=== PATIENT | female | born 1995 | race Caucasian/White ===

== ENCOUNTER 2017-04-13 20:05 | Emergency (ER) | payer MEDICARE, MEDICAID ==
[~2017-04-13] VITALS: Ht 157.4 cm; Wt 74.8 kg
[~2017-04-13 20:05] MED LIST: AMOXICILLIN500 M2 PO; AMOXICILLIN500 MG PO; AMOXIL500 MG PO; AUGMENTIN ES-6100 ML PO; MOTRIN800 MG PO; PRENATAL1 TA3 PO; VYVANSE50 MG PO; ZOFRAN8 M1 PO; [UNRECOGNIZED DRUG - OTHER]
[2017-04-13] MEDS ORDERED: ONDANSETRON HYDR4 MG PO (20:13)
[2017-04-13] MEDS ORDERED: FAMOTIDINE20 M1 PO (20:13)
[2017-04-13 20:25] LABS: BASO % 0.2 % (0.0-1.0); EOS # 0.5 10*3/uL (0.0-0.4); EOS % 4.3 % (1.0-4.0); HEMATOCRIT 30.9 % (37.0-47.0); HEMOGLOBIN 10.5 g/dl (12.0-16.0); IG # 0.1 10*3/uL (0.0-0.1); LYMPH # 1.9 10*3/uL (1.3-4.4); LYMPH % 15.2 % (27.0-41.0); MEAN CELL VOLUME 95.4 fl (81.0-99.0); MEAN CORPUSCULAR HGB 32.4 pg (27.0-31.0); MEAN PLATELET VOLUME 10.1 fl (9.6-12.3); MONO # 0.6 10*3/uL (0.1-1.0); MONO % 5.1 % (3.0-9.0); NEUT # 9.2 10*3/uL (2.3-7.9); NEUT % 74.7 % (47.0-73.0); PLATELET COUNT AUTOMATED 199 10*3/uL (130-400); RED BLOOD COUNT 3.24 10*6/uL (4.10-5.10); RED CELL DISTRI WIDTH 14.5 % (0-14.5); WHITE BLOOD COUNT 12.3 10*3/uL (4.8-10.8)
[2017-04-13 20:39] LABS: BILIRUBIN NEGATIVE (NEGATIVE); BLOOD NEGATIVE (NEGATIVE); CLARITY SL CLOUDY (CLEAR); COLOR YELLOW (YELLOW); GLUCOSE NEGATIVE (NEGATIVE); KETONE TRACE (NEGATIVE); LEUKO ESTERASE 1+ (NEGATIVE); NITRITE NEGATIVE (NEGATIVE); PH 6.5 (5.0-9.0); PROTEIN TRACE (NEGATIVE); UROBILINOGEN 0.2 E.U./dl (0.2-1.0)
[2017-04-13 20:40] LABS: ALBUMIN 2.7 gm/dl (3.1-4.5); ALKALINE PHOSPHATASE 113 U/L (45-117); BILIRUBIN, TOTAL 0.2 mg/dl (0.2-1.0); BUN 7 mg/dl (7-24); C-REACTIVE PROTEIN 3.21 MG/DL (0-0.3); CARBON DIOXIDE 24 mmol/L (21-32); CHLORIDE 107 mmol/L (98-107); EST GLOM FILT AFRICAN AMERICAN > 60 ml/min; GLUCOSE 96 mg/dL (65-99); MAGNESIUM 1.7 mg/dL (1.5-2.1); POTASSIUM 3.6 mmol/L (3.5-5.1); SGOT/AST 7 IU/L (3-35); SGPT/ALT 15 U/L (12-78); SODIUM 139 mmol/L (136-145); TOTAL PROTEIN 6.7 gm/dL (6.4-8.2)
[2017-04-13 20:48] LABS: BACTERIA 2+; EPITHELIAL CELLS 16-20; MUCOUS TRACE; RBC 0-2 rbc/hpf (0-2); WBC TNTC wbc/hpf (0-5)
[2017-04-13 20:49] LABS: URINE REFLEX COMMENT YES (NO)
[2017-04-13 23:45] VITALS: BP 109/60
== END 2017-04-14 00:06 | disposition short-term general hospital (02) ==
LOC: ED 20:05
PROVIDERS: Emergency Medicine Emergency Medical Services
DX: O23.42 Unspecified infection of urinary tract in pregnancy, second trimester (principal); Z3A.27 27 weeks gestation of pregnancy

== ENCOUNTER 2017-09-18 19:07 | Emergency (ER) | payer MEDICARE, MEDICAID ==
[~2017-09-18] VITALS: Ht 157.4 cm; Wt 80.3 kg
[~2017-09-18 19:07] MED LIST changes: +FAMOTIDINE20 M1 PO; +ONDANSETRON HYDR4 MG PO
[2017-09-18 19:18] VITALS: BP 132/86
[2017-09-18 19:57] LABS: BASO % 0.4 % (0.0-1.0); EOS # 0.2 10*3/uL (0.0-0.4); EOS % 2.5 % (1.0-4.0); HEMATOCRIT 36.5 % (37.0-47.0); HEMOGLOBIN 12.2 g/dl (12.0-16.0); LYMPH # 2.7 10*3/uL (1.3-4.4); LYMPH % 33.7 % (27.0-41.0); MEAN CELL VOLUME 90.1 fl (81.0-99.0); MEAN CORPUSCULAR HGB 30.1 pg (27.0-31.0); MEAN CORPUSCULAR HGB CONC 33.4 g/dl (33.0-37.0); MEAN PLATELET VOLUME 10.2 fl (9.6-12.3); MONO # 0.5 10*3/uL (0.1-1.0); MONO % 5.6 % (3.0-9.0); NEUT # 4.6 10*3/uL (2.3-7.9); NEUT % 57.5 % (47.0-73.0); PLATELET COUNT AUTOMATED 261 10*3/uL (130-400); RED BLOOD COUNT 4.05 10*6/uL (4.10-5.10); RED CELL DISTRI WIDTH 14.7 % (0-14.5)
[2017-09-18 20:11] LABS: BILIRUBIN NEGATIVE (NEGATIVE); BLOOD TRACE-INTACT (NEGATIVE); CLARITY CLEAR (CLEAR); COLOR YELLOW (YELLOW); GLUCOSE NEGATIVE (NEGATIVE); KETONE TRACE (NEGATIVE); LEUKO ESTERASE NEGATIVE (NEGATIVE); NITRITE NEGATIVE (NEGATIVE)
[2017-09-18 20:11] LABS: ALBUMIN 3.9 gm/dl (3.1-4.5); ALKALINE PHOSPHATASE 86 U/L (45-117); BUN 12 mg/dl (7-24); CHLORIDE 107 mmol/L (98-107); CREATININE 0.81 mg/dL (0.55-1.02); POTASSIUM 4.3 mmol/L (3.5-5.1); SGOT/AST 29 IU/L (3-35); SGPT/ALT 55 U/L (12-78); SODIUM 141 mmol/L (136-145); TOTAL PROTEIN 7.1 gm/dL (6.4-8.2)
[2017-09-18 20:12] LABS: ACT PARTIAL THROMBO TIME 25.1 SECONDS (20.8-31.5)
[2017-09-18 20:13] LABS: BETA-HCG, QUANT < 1.0 mIU/mL (1-3)
[2017-09-18 20:17] LABS: WBC 0-2 wbc/hpf (0-5)
== END 2017-09-18 21:52 | disposition home or self-care (01) ==
LOC: ED 19:07
PROVIDERS: Student in an Organized Health Care Education/Training Program
DX: N93.9 Abnormal uterine and vaginal bleeding, unspecified (principal); R10.31 Right lower quadrant pain; Z79.82 Long term (current) use of aspirin; Z79.899 Other long term (current) drug therapy

== ENCOUNTER 2017-10-17 20:35 | Emergency (ER) | payer MEDICARE, MEDICAID ==
[~2017-10-17] VITALS: Ht 154.9 cm; Wt 77.1 kg
[2017-10-17 20:54] VITALS: BP 126/72
[2017-10-17] MEDS ORDERED: Motrin,Rufen800 MG PO (21:59)
== END 2017-10-17 22:02 | disposition home or self-care (01) ==
LOC: ED 20:35
DX: S93.401A Sprain of unspecified ligament of right ankle, initial encounter (principal); Z88.6 Allergy status to analgesic agent; Z88.8 Allergy status to other drugs, medicaments and biological substances; Z79.899 Other long term (current) drug therapy; W17.2XXA Fall into hole, initial encounter; Y93.89 Activity, other specified; Y92.098 Other place in other non-institutional residence as the place of occurrence of the external cause; Y99.8 Other external cause status

== ENCOUNTER 2018-01-12 23:17 | Emergency (ER) | payer MEDICARE, MEDICAID ==
[~2018-01-12] VITALS: Ht 157.4 cm; Wt 84.4 kg
[~2018-01-12 23:17] MED LIST changes: +Motrin,Rufen800 MG PO
[2018-01-12 23:21] VITALS: BP 147/94
[2018-01-12 23:48] LABS: BASO % 0.4 % (0.0-1.0); EOS # 0.1 10*3/uL (0.0-0.4); EOS % 1.4 % (1.0-4.0); HEMATOCRIT 36.1 % (37.0-47.0); HEMOGLOBIN 12.6 g/dl (12.0-16.0); LYMPH # 2.8 10*3/uL (1.3-4.4); LYMPH % 35.3 % (27.0-41.0); MEAN CELL VOLUME 91.4 fl (81.0-99.0); MEAN CORPUSCULAR HGB 31.9 pg (27.0-31.0); MEAN CORPUSCULAR HGB CONC 34.9 g/dl (33.0-37.0); MEAN PLATELET VOLUME 10.5 fl (9.6-12.3); MONO # 0.6 10*3/uL (0.1-1.0); MONO % 7.2 % (3.0-9.0); NEUT # 4.4 10*3/uL (2.3-7.9); NEUT % 55.6 % (47.0-73.0); PLATELET COUNT AUTOMATED 224 10*3/uL (130-400); RED BLOOD COUNT 3.95 10*6/uL (4.10-5.10); RED CELL DISTRI WIDTH 13.6 % (0-14.5); WHITE BLOOD COUNT 7.9 10*3/uL (4.8-10.8)
[2018-01-13 00:04] LABS: ALBUMIN 3.8 gm/dl (3.1-4.5); ALKALINE PHOSPHATASE 81 U/L (45-117); BUN 13 mg/dl (7-24); CHLORIDE 106 mmol/L (98-107); CREATININE 0.71 mg/dL (0.55-1.02); LIPASE 100 U/L (73-393); POTASSIUM 3.8 mmol/L (3.5-5.1); SGOT/AST 33 IU/L (3-35); SGPT/ALT 61 U/L (12-78); SODIUM 139 mmol/L (136-145); TOTAL PROTEIN 6.9 gm/dL (6.4-8.2)
[2018-01-13 00:06] LABS: B-hCG (QUALITATIVE) NEGATIVE (NEGATIVE)
[2018-01-13 00:31] LABS: BILIRUBIN NEGATIVE (NEGATIVE); BLOOD TRACE-INTACT (NEGATIVE); CLARITY CLEAR (CLEAR); COLOR YELLOW (YELLOW); GLUCOSE NEGATIVE (NEGATIVE); KETONE NEGATIVE (NEGATIVE); LEUKO ESTERASE NEGATIVE (NEGATIVE); NITRITE NEGATIVE (NEGATIVE); PH 6.5 (5.0-9.0); UROBILINOGEN 0.2 E.U./dl (0.2-1.0)
[2018-01-13 00:55] LABS: WBC 0-2 wbc/hpf (0-5)
== END 2018-01-13 02:20 | disposition home or self-care (01) ==
LOC: ED 23:17
PROVIDERS: Emergency Medicine
DX: R10.9 Unspecified abdominal pain (principal); Z88.6 Allergy status to analgesic agent; Z88.8 Allergy status to other drugs, medicaments and biological substances; Z79.899 Other long term (current) drug therapy

== ENCOUNTER 2018-03-01 22:13 | Emergency (ER) | payer MEDICARE, MEDICAID ==
[~2018-03-01] VITALS: Ht 157.4 cm; Wt 81.6 kg
[2018-03-01 22:16] VITALS: BP 138/110
[2018-03-01] MEDS ORDERED: CEPHALEXIN500 M1 PO (22:29)
== END 2018-03-01 22:42 | disposition home or self-care (01) ==
LOC: ED 22:13
DX: Z48.00 Encounter for change or removal of nonsurgical wound dressing (principal); Z88.6 Allergy status to analgesic agent; Z88.8 Allergy status to other drugs, medicaments and biological substances

== ENCOUNTER → 2018-05-18 | Outpatient (CLI) | payer MEDICARE, MEDICAID ==
[~2018-05-18] MED LIST changes: +CEPHALEXIN500 M1 PO; +CYCLOBENZAPRINE5 M3 PO; +DICYCLOMINE HCL10 MG PO; +PROZAC10 MG PO; +Ranitidine Hyd150 MG PO
== END | disposition home or self-care (01) ==
LOC: RAD 13:22
DX: M54.5 Low back pain (principal)

== ENCOUNTER 2018-08-03 18:08 | Emergency (ER) | payer MEDICARE, MEDICAID ==
[~2018-08-03] VITALS: Ht 157.4 cm; Wt 78.5 kg
[~2018-08-03 18:08] MED LIST changes: -CYCLOBENZAPRINE5 M3 PO; -PROZAC10 MG PO; -Ranitidine Hyd150 MG PO
[2018-08-03] MEDS ORDERED: Ranitidine Hyd150 MG PO (18:09)
[2018-08-03] MEDS ORDERED: PROZAC10 MG PO (18:09)
[2018-08-03 18:11] VITALS: BP 145/86
[2018-08-03 18:44] LABS: BASO % 0.2 % (0.0-1.0); EOS # 0.1 10*3/uL (0.0-0.4); EOS % 0.7 % (1.0-4.0); HEMATOCRIT 39.7 % (37.0-47.0); HEMOGLOBIN 13.9 g/dl (12.0-16.0); LYMPH # 2.3 10*3/uL (1.3-4.4); LYMPH % 28.3 % (27.0-41.0); MEAN CELL VOLUME 89.8 fl (81.0-99.0); MEAN CORPUSCULAR HGB 31.4 pg (27.0-31.0); MEAN PLATELET VOLUME 10.8 fl (9.6-12.3); MONO # 0.4 10*3/uL (0.1-1.0); MONO % 4.7 % (3.0-9.0); NEUT # 5.3 10*3/uL (2.3-7.9); NEUT % 65.9 % (47.0-73.0); PLATELET COUNT AUTOMATED 219 10*3/uL (130-400); RED BLOOD COUNT 4.42 10*6/uL (4.10-5.10); RED CELL DISTRI WIDTH 12.6 % (0-14.5)
[2018-08-03 18:59] LABS: ALBUMIN 4.3 gm/dl (3.1-4.5); ALKALINE PHOSPHATASE 85 U/L (45-117); BUN 11 mg/dl (7-24); CHLORIDE 109 mmol/L (98-107); CREATININE 0.81 mg/dL (0.55-1.02); LIPASE 122 U/L (73-393); POTASSIUM 3.6 mmol/L (3.5-5.1); SGOT/AST 26 IU/L (3-35); SGPT/ALT 45 U/L (12-78); SODIUM 141 mmol/L (136-145); TOTAL PROTEIN 7.4 gm/dL (6.4-8.2)
[2018-08-03 19:03] LABS: BILIRUBIN NEGATIVE (NEGATIVE); BLOOD TRACE-LYSED (NEGATIVE); CLARITY CLEAR (CLEAR); COLOR YELLOW (YELLOW); GLUCOSE NEGATIVE (NEGATIVE); KETONE NEGATIVE (NEGATIVE); LEUKO ESTERASE TRACE (NEGATIVE); NITRITE NEGATIVE (NEGATIVE); SPECIFIC GRAVITY 1.025 (1.005-1.030); UROBILINOGEN 0.2 E.U./dl (0.2-1.0)
[2018-08-03 19:16] LABS: EPITHELIAL CELLS 18-20; MUCOUS TRACE
[2018-08-03] MEDS ORDERED: CYCLOBENZAPRINE5 M3 PO (19:53)
== END 2018-08-03 20:00 | disposition home or self-care (01) ==
LOC: ED 18:08
PROVIDERS: Physician Assistant
DX: N39.0 Urinary tract infection, site not specified (principal); Z98.51 Tubal ligation status; Z90.49 Acquired absence of other specified parts of digestive tract; Z88.6 Allergy status to analgesic agent; Z88.8 Allergy status to other drugs, medicaments and biological substances; Z79.899 Other long term (current) drug therapy

== ENCOUNTER 2018-12-19 23:21 | Emergency (ER) | payer MEDICARE, MEDICAID ==
[~2018-12-19] VITALS: Ht 157.4 cm; Wt 77.1 kg
[~2018-12-19 23:21] MED LIST changes: +CYCLOBENZAPRINE5 M3 PO; +PROZAC10 MG PO; +Ranitidine Hyd150 MG PO
[2018-12-19 23:23] VITALS: BP 124/67
[2018-12-20 00:18] LABS: BASO % 0.4 % (0.0-1.0); EOS # 0.2 10*3/uL (0.0-0.4); EOS % 1.9 % (1.0-4.0); HEMATOCRIT 37.7 % (37.0-47.0); HEMOGLOBIN 13.1 g/dl (12.0-16.0); LYMPH % 37.5 % (27.0-41.0); MEAN CELL VOLUME 92.4 fl (81.0-99.0); MEAN CORPUSCULAR HGB 32.1 pg (27.0-31.0); MEAN CORPUSCULAR HGB CONC 34.7 g/dl (33.0-37.0); MEAN PLATELET VOLUME 10.2 fl (9.6-12.3); MONO # 0.5 10*3/uL (0.1-1.0); MONO % 6.3 % (3.0-9.0); NEUT # 4.3 10*3/uL (2.3-7.9); NEUT % 53.8 % (47.0-73.0); PLATELET COUNT AUTOMATED 256 10*3/uL (130-400); RED BLOOD COUNT 4.08 10*6/uL (4.10-5.10); RED CELL DISTRI WIDTH 13.1 % (0-14.5)
[2018-12-20 00:33] LABS: ALBUMIN 3.8 gm/dl (3.1-4.5); ALKALINE PHOSPHATASE 92 U/L (45-117); BUN 12 mg/dl (7-24); CHLORIDE 102 mmol/L (98-107); CREATININE 0.72 mg/dL (0.55-1.02); LIPASE 89 U/L (73-393); POTASSIUM 3.6 mmol/L (3.5-5.1); SGOT/AST 27 IU/L (3-35); SGPT/ALT 49 U/L (12-78); SODIUM 138 mmol/L (136-145); TOTAL PROTEIN 7.3 gm/dL (6.4-8.2)
[2018-12-20 00:36] LABS: BILIRUBIN NEGATIVE (NEGATIVE); BLOOD NEGATIVE (NEGATIVE); CLARITY CLEAR (CLEAR); COLOR YELLOW (YELLOW); GLUCOSE NEGATIVE (NEGATIVE); KETONE NEGATIVE (NEGATIVE); LEUKO ESTERASE NEGATIVE (NEGATIVE); NITRITE NEGATIVE (NEGATIVE); PH 6.5 (5.0-9.0); UROBILINOGEN 0.2 E.U./dl (0.2-1.0)
[2018-12-20 00:45] LABS: EPITHELIAL CELLS 30-35; RBC 0-2 rbc/hpf (0-2); WBC 0-2 wbc/hpf (0-5)
[2018-12-31] MEDS ORDERED: PROTONIX40 MG PO (22:08)
[2019-01-21] MEDS ORDERED: CEPHALEXIN500 M1 PO (17:44)
== END 2018-12-20 01:41 | disposition home or self-care (01) ==
LOC: ED 23:21
PROVIDERS: Physician Assistant
DX: G89.29 Other chronic pain (principal); R10.13 Epigastric pain; K92.0 Hematemesis; Z88.6 Allergy status to analgesic agent; Z88.8 Allergy status to other drugs, medicaments and biological substances; Z79.899 Other long term (current) drug therapy; Z90.49 Acquired absence of other specified parts of digestive tract

== ENCOUNTER 2019-03-29 16:25 | Emergency (ER) | payer MEDICARE, MEDICAID ==
[~2019-03-29] VITALS: Ht 157.4 cm; Wt 81.6 kg
[~2019-03-29 16:25] MED LIST changes: +PROTONIX40 MG PO
[2019-03-29] MEDS ORDERED: MIRALAX17 GM PO (16:27)
[2019-03-29] MEDS ORDERED: DICYCLOMINE HCL10 MG PO (16:27)
[2019-03-29 16:28] VITALS: BP 116/80
[2019-03-29 16:51] LABS: BASO % 0.1 % (0.0-1.0); EOS # 0.1 10*3/uL (0.0-0.4); EOS % 1.3 % (1.0-4.0); HEMATOCRIT 43.2 % (37.0-47.0); HEMOGLOBIN 14.9 g/dl (12.0-16.0); LYMPH # 2.2 10*3/uL (1.3-4.4); MEAN CELL VOLUME 91.3 fl (81.0-99.0); MEAN CORPUSCULAR HGB 31.5 pg (27.0-31.0); MEAN CORPUSCULAR HGB CONC 34.5 g/dl (33.0-37.0); MEAN PLATELET VOLUME 10.8 fl (9.6-12.3); MONO # 0.4 10*3/uL (0.1-1.0); MONO % 6.2 % (3.0-9.0); NEUT # 4.3 10*3/uL (2.3-7.9); NEUT % 61.1 % (47.0-73.0); PLATELET COUNT AUTOMATED 249 10*3/uL (130-400); RED BLOOD COUNT 4.73 10*6/uL (4.10-5.10); RED CELL DISTRI WIDTH 12.9 % (0-14.5); WHITE BLOOD COUNT 7.1 10*3/uL (4.8-10.8)
[2019-03-29 17:07] LABS: ALBUMIN 4.5 gm/dl (3.1-4.5); ALKALINE PHOSPHATASE 90 U/L (45-117); BUN 11 mg/dl (7-24); CHLORIDE 106 mmol/L (98-107); CREATININE 0.73 mg/dL (0.55-1.02); LIPASE 101 U/L (73-393); POTASSIUM 3.9 mmol/L (3.5-5.1); SGOT/AST 18 IU/L (3-35); SGPT/ALT 34 U/L (12-78); SODIUM 135 mmol/L (136-145); TOTAL PROTEIN 7.9 gm/dL (6.4-8.2)
[2019-03-29 17:21] LABS: BILIRUBIN NEGATIVE (NEGATIVE); BLOOD NEGATIVE (NEGATIVE); CLARITY CLEAR (CLEAR); COLOR YELLOW (YELLOW); GLUCOSE NEGATIVE (NEGATIVE); KETONE NEGATIVE (NEGATIVE); LEUKO ESTERASE NEGATIVE (NEGATIVE); NITRITE NEGATIVE (NEGATIVE); PH 8.5 (5.0-9.0); SPECIFIC GRAVITY 1.015 (1.005-1.030); UROBILINOGEN 0.2 E.U./dl (0.2-1.0)
[2019-03-29 17:33] LABS: BACTERIA 1+; EPITHELIAL CELLS 31-40
== END 2019-03-29 18:32 | disposition home or self-care (01) ==
LOC: ED 16:25
PROVIDERS: Physician Assistant
DX: R10.13 Epigastric pain (principal); R11.0 Nausea; R10.2 Pelvic and perineal pain; Z79.899 Other long term (current) drug therapy; Z88.6 Allergy status to analgesic agent; Z88.8 Allergy status to other drugs, medicaments and biological substances

== ENCOUNTER 2019-04-22 00:30 | Emergency (ER) | payer MEDICARE, MEDICAID ==
[~2019-04-22] VITALS: Ht 157.4 cm; Wt 81.6 kg
[~2019-04-22 00:30] MED LIST changes: +MIRALAX17 GM PO
[2019-04-22 01:51] LABS: BASO % 0.4 % (0.0-1.0); EOS # 0.1 10*3/uL (0.0-0.4); EOS % 1.4 % (1.0-4.0); HEMATOCRIT 39.8 % (37.0-47.0); HEMOGLOBIN 13.4 g/dl (12.0-16.0); LYMPH # 3.1 10*3/uL (1.3-4.4); LYMPH % 38.1 % (27.0-41.0); MEAN CELL VOLUME 93.2 fl (81.0-99.0); MEAN CORPUSCULAR HGB 31.4 pg (27.0-31.0); MEAN CORPUSCULAR HGB CONC 33.7 g/dl (33.0-37.0); MEAN PLATELET VOLUME 10.4 fl (9.6-12.3); MONO # 0.5 10*3/uL (0.1-1.0); MONO % 5.9 % (3.0-9.0); NEUT # 4.4 10*3/uL (2.3-7.9); NEUT % 54.1 % (47.0-73.0); PLATELET COUNT AUTOMATED 234 10*3/uL (130-400); RED BLOOD COUNT 4.27 10*6/uL (4.10-5.10); WHITE BLOOD COUNT 8.1 10*3/uL (4.8-10.8)
[2019-04-22 02:02] LABS: BUN 15 mg/dl (7-24); CHLORIDE 109 mmol/L (98-107); CREATININE 0.66 mg/dL (0.55-1.02); LIPASE 102 U/L (73-393); SODIUM 141 mmol/L (136-145)
[2019-04-22 02:20] LABS: BILIRUBIN NEGATIVE (NEGATIVE); BLOOD NEGATIVE (NEGATIVE); CLARITY CLEAR (CLEAR); COLOR YELLOW (YELLOW); GLUCOSE NEGATIVE (NEGATIVE); KETONE NEGATIVE (NEGATIVE); LEUKO ESTERASE NEGATIVE (NEGATIVE); NITRITE NEGATIVE (NEGATIVE); SPECIFIC GRAVITY 1.025 (1.005-1.030); UROBILINOGEN 0.2 E.U./dl (0.2-1.0)
[2019-04-22 02:29] LABS: BACTERIA TRACE; MUCOUS 2+; RBC 0-2 rbc/hpf (0-2); WBC 0-2 wbc/hpf (0-5)
[2019-04-22 02:59] VITALS: BP 111/70
[2019-04-22] MEDS ORDERED: DICYCLOMINE HCL20 MG PO (03:28)
[2019-04-22] MEDS ORDERED: PEPCID20 MG PO (03:33)
== END 2019-04-22 03:55 | disposition home or self-care (01) ==
LOC: ED 00:30
PROVIDERS: Nurse Practitioner
DX: K20.9 Esophagitis, unspecified (principal); Z88.6 Allergy status to analgesic agent; Z88.8 Allergy status to other drugs, medicaments and biological substances; Z79.899 Other long term (current) drug therapy; Z90.49 Acquired absence of other specified parts of digestive tract

== ENCOUNTER 2019-04-28 00:56 | Emergency (ER) | payer OTHER, MEDICARE, MEDICAID ==
[~2019-04-28] VITALS: Wt 79.4 kg
[2019-04-28 00:56] VITALS: BP 127/67
[~2019-04-28 00:56] MED LIST changes: +DICYCLOMINE HCL20 MG PO; +PEPCID20 MG PO
[2019-04-28 01:51] LABS: BASO % 0.3 % (0.0-1.0); EOS # 0.1 10*3/uL (0.0-0.4); EOS % 1.4 % (1.0-4.0); HEMATOCRIT 35.7 % (37.0-47.0); HEMOGLOBIN 12.3 g/dl (12.0-16.0); LYMPH # 3.2 10*3/uL (1.3-4.4); LYMPH % 36.7 % (27.0-41.0); MEAN CORPUSCULAR HGB 31.7 pg (27.0-31.0); MEAN CORPUSCULAR HGB CONC 34.5 g/dl (33.0-37.0); MEAN PLATELET VOLUME 10.5 fl (9.6-12.3); MONO # 0.5 10*3/uL (0.1-1.0); MONO % 5.7 % (3.0-9.0); NEUT # 4.9 10*3/uL (2.3-7.9); NEUT % 55.8 % (47.0-73.0); PLATELET COUNT AUTOMATED 219 10*3/uL (130-400); RED BLOOD COUNT 3.88 10*6/uL (4.10-5.10); RED CELL DISTRI WIDTH 12.8 % (0-14.5); WHITE BLOOD COUNT 8.7 10*3/uL (4.8-10.8)
[2019-04-28 02:04] LABS: BUN 12 mg/dl (7-24); CHLORIDE 106 mmol/L (98-107); CREATININE 0.73 mg/dL (0.55-1.02); POTASSIUM 3.7 mmol/L (3.5-5.1); SODIUM 141 mmol/L (136-145)
[2019-04-28] MEDS ORDERED: Orphenadrine C100 MG PO (02:45)
[2019-04-28] MEDS ORDERED: Motrin,Rufen400 MG PO (02:45)
== END 2019-04-28 02:55 | disposition home or self-care (01) ==
LOC: ED 00:56
PROVIDERS: Emergency Medicine Emergency Medical Services
DX: S16.1XXA Strain of muscle, fascia and tendon at neck level, initial encounter (principal); Z79.899 Other long term (current) drug therapy; Z88.6 Allergy status to analgesic agent; Z88.8 Allergy status to other drugs, medicaments and biological substances; V89.2XXA Person injured in unspecified motor-vehicle accident, traffic, initial encounter; Y93.89 Activity, other specified; Y92.89 Other specified places as the place of occurrence of the external cause; Y99.8 Other external cause status

== ENCOUNTER 2019-07-31 16:03 | Emergency (ER) | payer MEDICARE, MEDICAID ==
[~2019-07-31] VITALS: Ht 157.4 cm; Wt 78.5 kg
[~2019-07-31 16:03] MED LIST changes: +Motrin,Rufen400 MG PO; +Orphenadrine C100 MG PO
[2019-07-31 16:04] VITALS: BP 143/90
[2019-07-31 16:45] LABS: BILIRUBIN NEGATIVE (NEGATIVE); BLOOD 2+ (NEGATIVE); CLARITY CLEAR (CLEAR); COLOR YELLOW (YELLOW); GLUCOSE NEGATIVE (NEGATIVE); KETONE NEGATIVE (NEGATIVE); LEUKO ESTERASE NEGATIVE (NEGATIVE); NITRITE NEGATIVE (NEGATIVE); SPECIFIC GRAVITY 1.025 (1.005-1.030); UROBILINOGEN 0.2 E.U./dl (0.2-1.0)
[2019-07-31 16:51] LABS: BACTERIA 2+; MUCOUS TRACE; WBC 0-2 wbc/hpf (0-5)
== END 2019-07-31 17:51 | disposition home or self-care (01) ==
LOC: ED 16:03
PROVIDERS: Physician Assistant
DX: J02.9 Acute pharyngitis, unspecified (principal); R10.9 Unspecified abdominal pain; Z88.6 Allergy status to analgesic agent; Z88.1 Allergy status to other antibiotic agents; Z79.899 Other long term (current) drug therapy

== ENCOUNTER 2019-08-02 16:05 | Emergency (ER) | payer MEDICARE, MEDICAID ==
[~2019-08-02] VITALS: Ht 157.4 cm; Wt 78.5 kg
[2019-08-02 16:06] VITALS: BP 132/90
[2019-08-02 16:50] LABS: BASO % 0.3 % (0.0-1.0); EOS # 0.1 10*3/uL (0.0-0.4); EOS % 1.4 % (1.0-4.0); HEMATOCRIT 40.7 % (37.0-47.0); HEMOGLOBIN 13.7 g/dl (12.0-16.0); LYMPH % 30.4 % (27.0-41.0); MEAN CELL VOLUME 90.6 fl (81.0-99.0); MEAN CORPUSCULAR HGB 30.5 pg (27.0-31.0); MEAN CORPUSCULAR HGB CONC 33.7 g/dl (33.0-37.0); MEAN PLATELET VOLUME 10.3 fl (9.6-12.3); MONO # 0.4 10*3/uL (0.1-1.0); MONO % 5.8 % (3.0-9.0); NEUT % 61.9 % (47.0-73.0); PLATELET COUNT AUTOMATED 247 10*3/uL (130-400); RED BLOOD COUNT 4.49 10*6/uL (4.10-5.10); RED CELL DISTRI WIDTH 12.4 % (0-14.5); WHITE BLOOD COUNT 6.4 10*3/uL (4.8-10.8)
[2019-08-02 17:06] LABS: BILIRUBIN NEGATIVE (NEGATIVE); BLOOD TRACE-LYSED (NEGATIVE); CLARITY CLEAR (CLEAR); COLOR YELLOW (YELLOW); GLUCOSE NEGATIVE (NEGATIVE); KETONE NEGATIVE (NEGATIVE); LEUKO ESTERASE NEGATIVE (NEGATIVE); NITRITE NEGATIVE (NEGATIVE); PH 5.5 (5.0-9.0); SPECIFIC GRAVITY 1.025 (1.005-1.030); UROBILINOGEN 0.2 E.U./dl (0.2-1.0)
[2019-08-02 17:06] LABS: ALBUMIN 4.2 gm/dl (3.1-4.5); ALKALINE PHOSPHATASE 77 U/L (45-117); BUN 9 mg/dl (7-24); CHLORIDE 109 mmol/L (98-107); CREATININE 0.77 mg/dL (0.55-1.02); LIPASE 70 U/L (73-393); POTASSIUM 3.7 mmol/L (3.5-5.1); SGOT/AST 18 IU/L (3-35); SGPT/ALT 33 U/L (12-78); SODIUM 141 mmol/L (136-145); TOTAL PROTEIN 7.6 gm/dL (6.4-8.2)
[2019-08-02 17:18] LABS: EPITHELIAL CELLS TNTC
[2019-08-02 17:19] LABS: BACTERIA TRACE; MUCOUS 2+; RBC 0-2 rbc/hpf (0-2)
== END 2019-08-02 18:31 | disposition home or self-care (01) ==
LOC: ED 16:05
PROVIDERS: Nurse Practitioner Family
DX: R10.9 Unspecified abdominal pain (principal); R31.9 Hematuria, unspecified; Z88.6 Allergy status to analgesic agent; Z88.8 Allergy status to other drugs, medicaments and biological substances; Z79.899 Other long term (current) drug therapy; Z90.49 Acquired absence of other specified parts of digestive tract

== ENCOUNTER 2019-10-17 17:36 | Emergency (ER) | payer MEDICARE, MEDICAID ==
[~2019-10-17] VITALS: Ht 157.4 cm; Wt 78.5 kg
[2019-10-17 17:47] VITALS: BP 141/100
[2019-10-17 18:41] LABS: BASO % 0.3 % (0.0-1.0); EOS # 0.1 10*3/uL (0.0-0.4); EOS % 1.2 % (1.0-4.0); HEMATOCRIT 42.9 % (37.0-47.0); HEMOGLOBIN 14.6 g/dl (12.0-16.0); LYMPH # 1.8 10*3/uL (1.3-4.4); LYMPH % 26.3 % (27.0-41.0); MEAN CELL VOLUME 91.9 fl (81.0-99.0); MEAN CORPUSCULAR HGB 31.3 pg (27.0-31.0); MEAN PLATELET VOLUME 10.6 fl (9.6-12.3); MONO # 0.6 10*3/uL (0.1-1.0); NEUT # 4.2 10*3/uL (2.3-7.9); NEUT % 63.1 % (47.0-73.0); PLATELET COUNT AUTOMATED 253 10*3/uL (130-400); RED BLOOD COUNT 4.67 10*6/uL (4.10-5.10); RED CELL DISTRI WIDTH 13.3 % (0-14.5); WHITE BLOOD COUNT 6.7 10*3/uL (4.8-10.8)
[2019-10-17 19:03] LABS: ACT PARTIAL THROMBO TIME 25.1 SECONDS (20.0-32.1); INTERNATIONAL NORM RATIO 0.9 (2.0-3.5)
[2019-10-17 19:20] LABS: BILIRUBIN 1+ (NEGATIVE); BLOOD 1+ (NEGATIVE); CLARITY CLEAR (CLEAR); COLOR YELLOW (YELLOW); GLUCOSE NEGATIVE (NEGATIVE); KETONE 1+ (NEGATIVE); LEUKO ESTERASE TRACE (NEGATIVE); NITRITE NEGATIVE (NEGATIVE); SPECIFIC GRAVITY 1.025 (1.005-1.030); UROBILINOGEN 0.2 E.U./dl (0.2-1.0)
[2019-10-17 19:22] LABS: BACTERIA TRACE; RBC 0-2 rbc/hpf (0-2); WBC 0-2 wbc/hpf (0-5)
[2019-10-17 19:31] LABS: ALBUMIN 3.9 gm/dl (3.1-4.5); ALKALINE PHOSPHATASE 94 U/L (45-117); BUN 12 mg/dl (7-24); CHLORIDE 108 mmol/L (98-107); CREATININE 0.76 mg/dL (0.55-1.02); LIPASE 62 U/L (73-393); SGOT/AST 14 IU/L (3-35); SGPT/ALT 33 U/L (12-78); SODIUM 138 mmol/L (136-145); TOTAL PROTEIN 7.5 gm/dL (6.4-8.2)
[2019-10-17 19:38] LABS: BETA-HCG, QUANT < 1.0 mIU/mL (1-3)
== END 2019-10-17 23:32 | disposition home or self-care (01) ==
LOC: ED 17:36
PROVIDERS: Emergency Medicine
DX: K29.70 Gastritis, unspecified, without bleeding (principal); Z88.6 Allergy status to analgesic agent; Z88.8 Allergy status to other drugs, medicaments and biological substances; Z79.899 Other long term (current) drug therapy

== ENCOUNTER 2019-11-28 15:08 | Emergency (ER) | payer MEDICARE, MEDICAID ==
[~2019-11-28] VITALS: Ht 157.4 cm; Wt 76.2 kg
[2019-11-28 15:17] VITALS: BP 124/80
== END 2019-11-28 16:35 | disposition home or self-care (01) ==
LOC: ED 15:08
DX: S90.812A Abrasion, left foot, initial encounter (principal); Z88.6 Allergy status to analgesic agent; Z88.8 Allergy status to other drugs, medicaments and biological substances; Z79.899 Other long term (current) drug therapy; W22.8XXA Striking against or struck by other objects, initial encounter; Y93.89 Activity, other specified; Y92.89 Other specified places as the place of occurrence of the external cause; Y99.8 Other external cause status

== ENCOUNTER 2020-01-22 21:07 | Emergency (ER) | payer MEDICARE, MEDICAID ==
[~2020-01-22] VITALS: Ht 157.4 cm; Wt 79.8 kg
[2020-01-22 21:14] VITALS: BP 138/97
== END 2020-01-22 22:40 | disposition left against medical advice (07) ==
LOC: ED 21:07
DX: T63.461A Toxic effect of venom of wasps, accidental (unintentional), initial encounter (principal); Y92.89 Other specified places as the place of occurrence of the external cause

== ENCOUNTER 2020-02-02 18:58 | Emergency (ER) | payer MEDICARE, MEDICAID ==
[~2020-02-02] VITALS: Ht 157.4 cm; Wt 77.1 kg
[2020-02-02 19:06] VITALS: BP 120/90
[2020-02-02 19:36] LABS: BASO % 0.3 % (0.0-1.0); EOS # 0.1 10*3/uL (0.0-0.4); LYMPH # 3.1 10*3/uL (1.3-4.4); LYMPH % 30.3 % (27.0-41.0); MEAN CORPUSCULAR HGB 31.5 pg (27.0-31.0); MEAN CORPUSCULAR HGB CONC 34.2 g/dl (33.0-37.0); MEAN PLATELET VOLUME 10.1 fl (9.6-12.3); MONO # 0.6 10*3/uL (0.1-1.0); MONO % 5.9 % (3.0-9.0); NEUT # 6.4 10*3/uL (2.3-7.9); NEUT % 62.3 % (47.0-73.0); PLATELET COUNT AUTOMATED 241 10*3/uL (130-400); RED BLOOD COUNT 4.13 10*6/uL (4.10-5.10); RED CELL DISTRI WIDTH 13.2 % (0-14.5); WHITE BLOOD COUNT 10.2 10*3/uL (4.8-10.8)
[2020-02-02 19:51] LABS: ALKALINE PHOSPHATASE 82 U/L (45-117); BUN 18 mg/dl (7-24); CHLORIDE 107 mmol/L (98-107); CREATININE 0.66 mg/dL (0.55-1.02); POTASSIUM 3.8 mmol/L (3.5-5.1); SGOT/AST 19 IU/L (3-35); SGPT/ALT 41 U/L (12-78); SODIUM 139 mmol/L (136-145); TOTAL PROTEIN 7.5 gm/dL (6.4-8.2)
== END 2020-02-02 21:28 | disposition home or self-care (01) ==
LOC: ED 18:58
PROVIDERS: Physician Assistant
DX: T50.905A Adverse effect of unspecified drugs, medicaments and biological substances, initial encounter (principal); Z79.899 Other long term (current) drug therapy; Y92.89 Other specified places as the place of occurrence of the external cause

== ENCOUNTER 2020-03-06 19:18 | Emergency (ER) | payer MEDICARE, MEDICAID ==
[~2020-03-06] VITALS: Ht 165.1 cm; Wt 82.1 kg
[2020-03-06 19:44] VITALS: BP 118/74
== END 2020-03-06 20:40 | disposition home or self-care (01) ==
LOC: ED 19:18
DX: N61.0 Mastitis without abscess (principal); G89.29 Other chronic pain; Z79.899 Other long term (current) drug therapy; Z88.6 Allergy status to analgesic agent; Z88.8 Allergy status to other drugs, medicaments and biological substances

== ENCOUNTER 2020-04-07 16:43 | Emergency (ER) | payer MEDICARE, MEDICAID ==
[~2020-04-07] VITALS: Wt 81.6 kg
[2020-04-07 16:48] VITALS: BP 127/96
[2020-04-07] MEDS ORDERED: DIVALPROEX SOD250 M1 PO (16:54)
[2020-04-07] MEDS ORDERED: LATU20TA PO (16:54)
[2020-04-07] MEDS ORDERED: PENICILLIN VK500 MG PO (17:31)
[2020-04-07] MEDS ORDERED: IBU800 MG PO (17:31)
== END 2020-04-07 17:38 | disposition home or self-care (01) ==
LOC: ED 16:43
DX: K04.7 Periapical abscess without sinus (principal); K08.89 Other specified disorders of teeth and supporting structures; Z88.5 Allergy status to narcotic agent; Z88.8 Allergy status to other drugs, medicaments and biological substances; Z79.899 Other long term (current) drug therapy

== ENCOUNTER 2020-09-04 21:56 | Emergency (ER) | payer MEDICARE, MEDICAID ==
[~2020-09-04] VITALS: Ht 157.4 cm; Wt 84.4 kg
[~2020-09-04 21:56] MED LIST changes: +DIVALPROEX SOD250 M1 PO; +IBU800 MG PO; +LATU20TA PO; +PENICILLIN VK500 MG PO
[2020-09-04 22:05] VITALS: BP 110/79
[2020-09-04] MEDS ORDERED: SILVADENE20 GM T (22:12)
== END 2020-09-04 22:25 | disposition home or self-care (01) ==
LOC: ED 21:56
DX: T23.292A Burn of second degree of multiple sites of left wrist and hand, initial encounter (principal); Z79.899 Other long term (current) drug therapy; Z88.6 Allergy status to analgesic agent; Z88.8 Allergy status to other drugs, medicaments and biological substances; X08.8XXA Exposure to other specified smoke, fire and flames, initial encounter; Y93.89 Activity, other specified; Y92.89 Other specified places as the place of occurrence of the external cause; Y99.8 Other external cause status

== ENCOUNTER 2020-10-22 18:32 | Emergency (ER) | payer MEDICARE, MEDICAID ==
[~2020-10-22] VITALS: Ht 157.4 cm; Wt 76.2 kg
[~2020-10-22 18:32] MED LIST changes: +SILVADENE20 GM T
[2020-10-22 19:04] VITALS: BP 125/81
[2020-10-22] MEDS ORDERED: AUGMENTIN 875875 MG PO (19:39)
== END 2020-10-22 19:43 | disposition home or self-care (01) ==
LOC: ED 18:32
DX: H66.92 Otitis media, unspecified, left ear (principal); J45.909 Unspecified asthma, uncomplicated; F31.9 Bipolar disorder, unspecified; Z88.5 Allergy status to narcotic agent; Z88.8 Allergy status to other drugs, medicaments and biological substances; Z79.899 Other long term (current) drug therapy

== ENCOUNTER 2020-12-08 20:47 | Emergency (ER) | payer MEDICARE, MEDICAID ==
[~2020-12-08] VITALS: Ht 160 cm; Wt 80.7 kg
[~2020-12-08 20:47] MED LIST changes: +AUGMENTIN 875875 MG PO
[2020-12-08 20:58] VITALS: BP 156/97
== END 2020-12-08 22:19 | disposition home or self-care (01) ==
LOC: ED 20:47
DX: T78.1XXA Other adverse food reactions, not elsewhere classified, initial encounter (principal); L27.2 Dermatitis due to ingested food; R07.89 Other chest pain; Z88.6 Allergy status to analgesic agent; Z88.8 Allergy status to other drugs, medicaments and biological substances; Z79.2 Long term (current) use of antibiotics; Z79.899 Other long term (current) drug therapy; Z98.51 Tubal ligation status; Z98.890 Other specified postprocedural states; X58.XXXA Exposure to other specified factors, initial encounter

== ENCOUNTER 2021-04-22 17:39 | Emergency (ER) | payer MEDICARE, MEDICAID ==
[~2021-04-22] VITALS: Wt 83.9 kg
[2021-04-22 17:45] VITALS: BP 150/85
== END 2021-04-22 19:45 | disposition left against medical advice (07) ==
LOC: ED 17:39
DX: R14.0 Abdominal distension (gaseous) (principal); R10.9 Unspecified abdominal pain; Z53.21 Procedure and treatment not carried out due to patient leaving prior to being seen by health care provider

== ENCOUNTER 2021-04-24 22:01 | Emergency (ER) | payer MEDICARE, MEDICAID ==
[~2021-04-24] VITALS: Ht 157.4 cm; Wt 86.2 kg
[2021-04-24 22:23] VITALS: BP 141/75
[2021-04-24 22:40] LABS: BILIRUBIN Negative (Negative); BLOOD Negative (Negative); CLARITY Clear (Clear); COLOR Yellow (Yellow); GLUCOSE Negative (Negative); KETONE Negative (Negative); LEUKO ESTERASE Negative (Negative); NITRITE Negative (Negative); PH 5.5 (4.5-8.0); SPECIFIC GRAVITY >= 1.030 (1.001-1.030)
[2021-04-24 23:09] LABS: BACTERIA TRACE; HYALINE CAST 0-2; MUCOUS 3+
[2021-04-25 00:41] LABS: BASO % 0.3 % (0.0-1.0); EOS # 0.1 10*3/uL (0.0-0.4); EOS % 1.2 % (1.0-4.0); HEMATOCRIT 38.1 % (37.0-47.0); LYMPH # 2.7 10*3/uL (1.3-4.4); LYMPH % 29.2 % (27.0-41.0); MEAN CORPUSCULAR HGB 30.6 pg (27.0-31.0); MEAN CORPUSCULAR HGB CONC 34.4 g/dl (33.0-37.0); MEAN PLATELET VOLUME 10.6 fl (9.6-12.3); MONO # 0.7 10*3/uL (0.1-1.0); MONO % 7.2 % (3.0-9.0); NEUT # 5.8 10*3/uL (2.3-7.9); PLATELET COUNT AUTOMATED 242 10*3/uL (130-400); RED BLOOD COUNT 4.28 10*6/uL (4.10-5.10); RED CELL DISTRI WIDTH 13.2 % (0-14.5); WHITE BLOOD COUNT 9.4 10*3/uL (4.8-10.8)
[2021-04-25 00:47] LABS: ALBUMIN 4.1 gm/dl (3.1-4.5); ALKALINE PHOSPHATASE 82 U/L (45-117); BUN 17 mg/dl (7-24); CHLORIDE 106 mmol/L (98-107); CREATININE 0.93 mg/dL (0.55-1.02); LIPASE 84 U/L (73-393); POTASSIUM 3.6 mmol/L (3.5-5.1); SGOT/AST 32 IU/L (3-35); SGPT/ALT 66 U/L (12-78); SODIUM 139 mmol/L (136-145); TOTAL PROTEIN 7.8 gm/dL (6.4-8.2)
== END 2021-04-25 03:03 | disposition home or self-care (01) ==
LOC: ED 22:01
PROVIDERS: Emergency Medicine
DX: R10.13 Epigastric pain (principal); Z88.6 Allergy status to analgesic agent; Z88.8 Allergy status to other drugs, medicaments and biological substances; Z79.899 Other long term (current) drug therapy

== ENCOUNTER 2021-05-27 22:13 | Emergency (ER) | payer MEDICARE, MEDICAID ==
[~2021-05-27] VITALS: Ht 157.4 cm; Wt 89.8 kg
[2021-05-27 22:28] VITALS: BP 143/88
[2021-05-28] MEDS ORDERED: TESSALON PERLE100 MG PO (02:34)
== END 2021-05-28 02:41 | disposition home or self-care (01) ==
LOC: ED 22:13
DX: J03.90 Acute tonsillitis, unspecified (principal); H66.91 Otitis media, unspecified, right ear; Z88.8 Allergy status to other drugs, medicaments and biological substances; Z79.899 Other long term (current) drug therapy

== ENCOUNTER 2022-06-02 16:47 | Emergency (ER) | payer MEDICARE, MEDICAID ==
[~2022-06-02] VITALS: Ht 157.4 cm; Wt 90.7 kg
[~2022-06-02 16:47] MED LIST changes: +TESSALON PERLE100 MG PO
[2022-06-02 17:09] VITALS: BP 124/99
[2022-06-02] MEDS ORDERED: PREDNISONE20 M1 PO (21:23)
[2022-06-02] MEDS ORDERED: METHOCARBAMOL500 M1 PO (21:23)
== END 2022-06-02 21:31 | disposition home or self-care (01) ==
LOC: ED 16:47
DX: M54.32 Sciatica, left side (principal); F17.200 Nicotine dependence, unspecified, uncomplicated; Z79.899 Other long term (current) drug therapy; Z88.6 Allergy status to analgesic agent; Z88.8 Allergy status to other drugs, medicaments and biological substances

== ENCOUNTER 2022-07-01 19:57 | Emergency (ER) | payer MEDICARE, MEDICAID ==
[~2022-07-01] VITALS: Ht 157.4 cm; Wt 86.2 kg
[~2022-07-01 19:57] MED LIST changes: +METHOCARBAMOL500 M1 PO; +PREDNISONE20 M1 PO
[2022-07-01 20:32] VITALS: BP 147/92
[2022-07-01] MEDS ORDERED: AMOXICILLIN500 M2 PO (20:50)
== END 2022-07-01 21:00 | disposition home or self-care (01) ==
LOC: ED 19:57
DX: J02.9 Acute pharyngitis, unspecified (principal); Z88.8 Allergy status to other drugs, medicaments and biological substances; Z90.49 Acquired absence of other specified parts of digestive tract

== ENCOUNTER 2022-10-08 16:38 | Emergency (ER) | payer MEDICARE, MEDICAID ==
[~2022-10-08] VITALS: Ht 157.4 cm; Wt 86.2 kg
[2022-10-08 16:44] VITALS: BP 134/91
== END 2022-10-08 18:22 | disposition home or self-care (01) ==
LOC: ED 16:38
DX: S93.401A Sprain of unspecified ligament of right ankle, initial encounter (principal); Z88.8 Allergy status to other drugs, medicaments and biological substances; Z98.890 Other specified postprocedural states; W01.0XXA Fall on same level from slipping, tripping and stumbling without subsequent striking against object, initial encounter; Y93.89 Activity, other specified; Y92.89 Other specified places as the place of occurrence of the external cause; Y99.8 Other external cause status

== ENCOUNTER 2022-12-15 21:13 | Emergency (ER) | payer MEDICARE, MEDICAID ==
[~2022-12-15] VITALS: Ht 167.6 cm; Wt 95.3 kg
[2022-12-15 21:36] VITALS: BP 130/96
[2022-12-15] MEDS ORDERED: PRILOSEC20 M1 PO (21:53)
[2022-12-15 22:46] LABS: BASO % 0.3 % (0.0-1.0); EOS # 0.2 10*3/uL (0.0-0.4); EOS % 1.7 % (1.0-4.0); HEMATOCRIT 39.1 % (37.0-47.0); LYMPH # 3.5 10*3/uL (1.3-4.4); MEAN CELL VOLUME 90.1 fl (81.0-99.0); MEAN CORPUSCULAR HGB 31.3 pg (27.0-31.0); MEAN CORPUSCULAR HGB CONC 34.8 g/dl (33.0-37.0); MEAN PLATELET VOLUME 9.9 fl (9.6-12.3); MONO # 0.5 10*3/uL (0.1-1.0); MONO % 5.2 % (3.0-9.0); NEUT # 5.3 10*3/uL (2.3-7.9); NEUT % 55.5 % (47.0-73.0); PLATELET COUNT AUTOMATED 277 10*3/uL (130-400); RED BLOOD COUNT 4.34 10*6/uL (4.10-5.10); RED CELL DISTRI WIDTH 12.6 % (0-14.5); WHITE BLOOD COUNT 9.5 10*3/uL (4.8-10.8)
[2022-12-15 23:00] LABS: ALKALINE PHOSPHATASE 100 U/L (46-116); BUN 14 mg/dl (9-23); CHLORIDE 103 mmol/L (98-107); LIPASE 34 U/L (12-53); POTASSIUM 4.1 mmol/L (3.4-5.1); SGPT/ALT 27 U/L (10-49); TOTAL PROTEIN 7.1 gm/dL (6.0-8.0)
== END 2022-12-16 00:19 | disposition home or self-care (01) ==
LOC: ED 21:13
PROVIDERS: Emergency Medicine
DX: G89.29 Other chronic pain (principal); R10.9 Unspecified abdominal pain; F41.9 Anxiety disorder, unspecified; F31.9 Bipolar disorder, unspecified; J45.909 Unspecified asthma, uncomplicated; Z88.6 Allergy status to analgesic agent; Z88.8 Allergy status to other drugs, medicaments and biological substances; Z98.890 Other specified postprocedural states; Z98.51 Tubal ligation status

== ENCOUNTER 2023-06-10 19:31 | Emergency (ER) | payer MEDICARE, MEDICAID ==
[~2023-06-10] VITALS: Ht 157.4 cm; Wt 88.9 kg
[2023-06-10 19:31] VITALS: BP 148/96
[~2023-06-10 19:31] MED LIST changes: +PRILOSEC20 M1 PO
[2023-06-10] MEDS ORDERED: [UNRECOGNIZED DRUG - OTHER] PO (19:56)
[2023-06-10 20:13] LABS: BASO % 0.3 % (0.0-1.0); EOS # 0.1 10*3/uL (0.0-0.4); EOS % 1.2 % (1.0-4.0); LYMPH % 32.9 % (27.0-41.0); MEAN CELL VOLUME 90.5 fl (81.0-99.0); MEAN CORPUSCULAR HGB 31.1 pg (27.0-31.0); MEAN CORPUSCULAR HGB CONC 34.4 g/dl (33.0-37.0); MEAN PLATELET VOLUME 9.8 fl (9.6-12.3); MONO # 0.4 10*3/uL (0.1-1.0); MONO % 4.7 % (3.0-9.0); NEUT # 5.5 10*3/uL (2.3-7.9); NEUT % 60.8 % (47.0-73.0); PLATELET COUNT AUTOMATED 257 10*3/uL (130-400); RED BLOOD COUNT 4.53 10*6/uL (4.10-5.10); RED CELL DISTRI WIDTH 12.9 % (0-14.5)
[2023-06-10 20:27] LABS: BILIRUBIN Negative (Negative); BLOOD Negative (Negative); CLARITY Clear (Clear); COLOR Yellow (Yellow); GLUCOSE Negative (Negative); KETONE Negative (Negative); LEUKO ESTERASE Negative (Negative); NITRITE Negative (Negative); PH 5.5 (4.5-8.0); SPECIFIC GRAVITY 1.025 (1.001-1.030)
[2023-06-10 20:38] LABS: BACTERIA TRACE; RBC 0-2 rbc/hpf (0-2); WBC 0-2 wbc/hpf (0-5)
[2023-06-10 20:40] LABS: ALKALINE PHOSPHATASE 89 U/L (46-116); BUN 12 mg/dl (9-23); CHLORIDE 107 mmol/L (98-107); POTASSIUM 3.7 mmol/L (3.4-5.1); SGPT/ALT 21 U/L (10-49); TOTAL PROTEIN 7.6 gm/dL (6.0-8.0)
[2023-06-10] MEDS ORDERED: PROTONIX40 MG PO (20:49)
== END 2023-06-10 20:57 | disposition home or self-care (01) ==
LOC: ED 19:31
PROVIDERS: Nurse Practitioner Family
DX: K21.9 Gastro-esophageal reflux disease without esophagitis (principal); R11.2 Nausea with vomiting, unspecified; F41.9 Anxiety disorder, unspecified; F90.9 Attention-deficit hyperactivity disorder, unspecified type; F31.9 Bipolar disorder, unspecified; J45.909 Unspecified asthma, uncomplicated; Z88.6 Allergy status to analgesic agent; Z88.8 Allergy status to other drugs, medicaments and biological substances; Z98.890 Other specified postprocedural states; Z98.51 Tubal ligation status; F17.290 Nicotine dependence, other tobacco product, uncomplicated

== ENCOUNTER 2023-08-25 16:54 | Emergency (ER) | payer MEDICARE, MEDICAID ==
[~2023-08-25] VITALS: Wt 86.2 kg
[~2023-08-25 16:54] MED LIST changes: +[UNRECOGNIZED DRUG - OTHER] PO
[2023-08-25 17:36] VITALS: BP 132/84
== END 2023-08-25 20:21 | disposition home or self-care (01) ==
LOC: ED 16:54
DX: J02.8 Acute pharyngitis due to other specified organisms (principal); R11.0 Nausea; F41.9 Anxiety disorder, unspecified; F90.9 Attention-deficit hyperactivity disorder, unspecified type; J45.909 Unspecified asthma, uncomplicated; F31.9 Bipolar disorder, unspecified; Z88.6 Allergy status to analgesic agent; Z88.8 Allergy status to other drugs, medicaments and biological substances; Z98.51 Tubal ligation status; Z98.890 Other specified postprocedural states; Z20.822 Contact with and (suspected) exposure to COVID-19

== ENCOUNTER 2024-01-24 21:16 | Emergency (ER) | payer MEDICARE, MEDICAID ==
[~2024-01-24] VITALS: Ht 157.4 cm; Wt 89.8 kg
[2024-01-24 21:56] VITALS: BP 98/66
[2024-01-24] MEDS ORDERED: PREVACID30 M2 PO (23:20)
[2024-01-24] MEDS ORDERED: IOHEXOL 300 MG/ML 100 ML VIAL IV ONE (23:25)
[2024-01-24 23:35] LABS: BASO % 0.3 % (0.0-1.0); EOS # 0.1 10*3/uL (0.0-0.4); EOS % 1.1 % (1.0-4.0); HEMATOCRIT 38.6 % (37.0-47.0); LYMPH # 3.7 10*3/uL (1.3-4.4); LYMPH % 34.6 % (27.0-41.0); MEAN CELL VOLUME 91.9 fl (81.0-99.0); MEAN CORPUSCULAR HGB 31.2 pg (27.0-31.0); MEAN CORPUSCULAR HGB CONC 33.9 g/dl (33.0-37.0); MONO # 0.6 10*3/uL (0.1-1.0); MONO % 5.5 % (3.0-9.0); NEUT # 6.2 10*3/uL (2.3-7.9); NEUT % 58.2 % (47.0-73.0); PLATELET COUNT AUTOMATED 251 10*3/uL (130-400); RED CELL DISTRI WIDTH 13.1 % (0-14.5); WHITE BLOOD COUNT 10.6 10*3/uL (4.8-10.8)
[2024-01-24 23:59] LABS: ALKALINE PHOSPHATASE 88 U/L (46-116); BUN 8 mg/dl (9-23); CHLORIDE 104 mmol/L (98-107); LIPASE 43 U/L (12-53); POTASSIUM 3.7 mmol/L (3.4-5.1); SGPT/ALT 29 U/L (5-49); TOTAL PROTEIN 6.8 gm/dL (6.0-8.0)
[2024-01-25 00:11] LABS: BILIRUBIN Negative (Negative); BLOOD Negative (Negative); CLARITY Clear (Clear); COLOR Yellow (Yellow); GLUCOSE Negative (Negative); KETONE Trace (Negative); LEUKO ESTERASE Negative (Negative); NITRITE Negative (Negative); PH 6.5 (4.5-8.0); SPECIFIC GRAVITY 1.025 (1.001-1.030)
[2024-01-25 00:13] LABS: URINE AMPHETAMINES Negative (1000ng/ml); URINE BARBITURATES Negative (200ng/ml); URINE BENZODIAZEPINES Negative (200ng/ml); URINE CANNABINOIDS (THC) Negative (50ng/ml); URINE COCAINE Negative (300ng/ml); URINE METHADONE Negative (300ng/ml); URINE OPIATES Negative (300ng/ml); URINE PHENCYCLIDINE Negative (25ng/ml)
[2024-01-25 00:58] LABS: WBC 0-2 wbc/hpf (0-5)
[2024-01-25] MEDS ORDERED: MG-AL HYDROXIDE/SIMETICONE 30 ML UDC PO STA (01:40)
[2024-01-25] MEDS ORDERED: Lidocaine Hydrochloride 15 ML UDC PO STA (01:40)
[2024-01-25] MEDS ORDERED: Dicyclomine Hydrochloride 20 MG/10 ML OSYR PO STA (01:40)
[2024-01-25] MEDS ORDERED: ONDANSETRON4 MG SL (02:03)
== END 2024-01-25 02:38 | disposition home or self-care (01) ==
LOC: ED 21:16
PROVIDERS: Internal Medicine
DX: R10.9 Unspecified abdominal pain (principal); R11.2 Nausea with vomiting, unspecified; Z88.6 Allergy status to analgesic agent; Z88.8 Allergy status to other drugs, medicaments and biological substances; Z79.899 Other long term (current) drug therapy

== ENCOUNTER 2024-03-30 21:16 | Emergency (ER) | payer MEDICARE, MEDICAID ==
[~2024-03-30] VITALS: Ht 157.4 cm; Wt 89.8 kg
[~2024-03-30 21:16] MED LIST changes: +ONDANSETRON4 MG SL; +PREVACID30 M2 PO
[2024-03-30 21:23] VITALS: BP 135/84
[2024-03-30] MEDS ORDERED: Ondansetron Hydrochloride 4 MG TAB SL ONE (22:15)
[2024-03-30 22:30] LABS: BASO % 0.2 % (0.0-1.0); EOS % 0.2 % (1.0-4.0); HEMATOCRIT 40.2 % (37.0-47.0); LYMPH # 2.4 10*3/uL (1.3-4.4); LYMPH % 16.7 % (27.0-41.0); MEAN CELL VOLUME 90.3 fl (81.0-99.0); MEAN CORPUSCULAR HGB CONC 34.3 g/dl (33.0-37.0); MEAN PLATELET VOLUME 10.1 fl (9.6-12.3); MONO # 0.7 10*3/uL (0.1-1.0); MONO % 4.8 % (3.0-9.0); NEUT # 11.3 10*3/uL (2.3-7.9); NEUT % 77.8 % (47.0-73.0); PLATELET COUNT AUTOMATED 257 10*3/uL (130-400); RED BLOOD COUNT 4.45 10*6/uL (4.10-5.10); RED CELL DISTRI WIDTH 13.3 % (0-14.5); WHITE BLOOD COUNT 14.5 10*3/uL (4.8-10.8)
[2024-03-30 22:32] LABS: BILIRUBIN Negative (Negative); BLOOD Trace-Intact (Negative); CLARITY Clear (Clear); COLOR Yellow (Yellow); GLUCOSE Negative (Negative); KETONE Trace (Negative); LEUKO ESTERASE Negative (Negative); NITRITE Negative (Negative); SPECIFIC GRAVITY >= 1.030 (1.001-1.030)
[2024-03-30 22:40] LABS: EPITHELIAL CELLS 16-20; WBC 0-2 wbc/hpf (0-5)
[2024-03-30 22:51] LABS: BUN 7 mg/dl (9-23); CHLORIDE 106 mmol/L (98-107); LIPASE 32 U/L (12-53); POTASSIUM 3.5 mmol/L (3.4-5.1)
[2024-03-30] MEDS ORDERED: LORazepam 0.5 MG TAB PO ONE (23:45)
== END 2024-03-30 23:47 | disposition home or self-care (01) ==
LOC: ED 21:16
PROVIDERS: Emergency Medicine
DX: F41.9 Anxiety disorder, unspecified (principal); R11.0 Nausea; F90.9 Attention-deficit hyperactivity disorder, unspecified type; J45.909 Unspecified asthma, uncomplicated; F31.9 Bipolar disorder, unspecified; K21.9 Gastro-esophageal reflux disease without esophagitis; Z88.6 Allergy status to analgesic agent; Z88.8 Allergy status to other drugs, medicaments and biological substances; Z98.51 Tubal ligation status; Z98.890 Other specified postprocedural states; Z90.49 Acquired absence of other specified parts of digestive tract

== ENCOUNTER 2024-06-15 16:45 | Emergency (ER) | payer MEDICARE, MEDICAID ==
[~2024-06-15] VITALS: Ht 157.4 cm; Wt 92.4 kg
[2024-06-15 16:57] VITALS: BP 121/74
[2024-06-15] MEDS ORDERED: methylPREDNISolone sod succ 125 MG VIAL IM ONE (17:15)
[2024-06-15] MEDS ORDERED: Ketorolac Tromethamine 30 MG/ML VIAL IM ONE (17:15)
[2024-06-15] MEDS ORDERED: METHOCARBAMOL500 M1 PO (19:44)
[2024-06-15] MEDS ORDERED: METHOCARBAMOL 500 MG TAB PO ONE (20:00)
== END 2024-06-15 19:53 | disposition home or self-care (01) ==
LOC: ED 16:45
DX: S39.012A Strain of muscle, fascia and tendon of lower back, initial encounter (principal); F41.9 Anxiety disorder, unspecified; F90.9 Attention-deficit hyperactivity disorder, unspecified type; J45.909 Unspecified asthma, uncomplicated; F31.9 Bipolar disorder, unspecified; Z88.6 Allergy status to analgesic agent; Z88.8 Allergy status to other drugs, medicaments and biological substances; Z90.49 Acquired absence of other specified parts of digestive tract; Z98.890 Other specified postprocedural states; Z98.51 Tubal ligation status; X50.0XXA Overexertion from strenuous movement or load, initial encounter; Y93.89 Activity, other specified; Y92.009 Unspecified place in unspecified non-institutional (private) residence as the place of occurrence of the external cause; Y99.8 Other external cause status

== ENCOUNTER 2024-09-24 15:13 | Emergency (ER) | payer MEDICARE, MEDICAID ==
[~2024-09-24] VITALS: Ht 157.4 cm; Wt 93.5 kg
[2024-09-24 15:32] VITALS: BP 132/96
[2024-09-24] MEDS ORDERED: XIFAXAN550 MG PO (15:47)
[2024-09-24] MEDS ORDERED: OXCARBAZEPINE300 M1 PO (15:48)
[2024-09-24] MEDS ORDERED: VILAZODONE HCL40 M1 PO (15:48)
[2024-09-24] MEDS ORDERED: Ketorolac Tromethamine 30 MG/ML VIAL IM ONE (17:50)
== END 2024-09-24 18:07 | disposition home or self-care (01) ==
LOC: ED 15:13
DX: S93.401A Sprain of unspecified ligament of right ankle, initial encounter (principal); F41.9 Anxiety disorder, unspecified; F90.9 Attention-deficit hyperactivity disorder, unspecified type; F31.9 Bipolar disorder, unspecified; J45.909 Unspecified asthma, uncomplicated; Z98.51 Tubal ligation status; Z88.6 Allergy status to analgesic agent; Z88.8 Allergy status to other drugs, medicaments and biological substances; Z98.890 Other specified postprocedural states; Z90.49 Acquired absence of other specified parts of digestive tract; W01.0XXA Fall on same level from slipping, tripping and stumbling without subsequent striking against object, initial encounter; Y93.01 Activity, walking, marching and hiking; Y92.009 Unspecified place in unspecified non-institutional (private) residence as the place of occurrence of the external cause; Y99.8 Other external cause status